=== PATIENT | male | born 1975 | race Caucasian/White ===

== ENCOUNTER → 2018-06-26 | Day surgery (SDC) | payer MEDICARE, MEDICAID ==
[~2018-06-26] VITALS: Ht 162.6 cm; Wt 58.3 kg
[~2018-06-26] MED LIST: HYDR10TA11 PO; LACTATED RINGERS 1,000 ML IV SCH; LEVO100T PO; PLEASE ENTER HEIGHT AND WEIGHT MC SCH
[2018-06-26 10:58] VITALS: BP 108/77
== END | disposition home or self-care (01) ==
LOC: OUT 10:08
DX: Z02.9 Encounter for administrative examinations, unspecified (principal)

== ENCOUNTER 2019-01-26 09:01 | Day surgery (SDC) | payer MEDICARE, MEDICAID ==
[~2019-01-26] VITALS: Ht 162.6 cm; Wt 52.8 kg
[~2019-01-26 09:01] MED LIST changes: +HYDR-3059 PO; -HYDR10TA11 PO; -LACTATED RINGERS 1,000 ML IV SCH; -PLEASE ENTER HEIGHT AND WEIGHT MC SCH
[2019-01-26 09:40] VITALS: BP 117/73
[2019-01-26] MEDS ORDERED: LACTATED RINGERS 1,000 ML IV SCH (09:53)
[2019-01-26] MEDS ORDERED: PROPOFOL 10 MG/ML, 20ML ONE (11:11)
[2019-01-26] MEDS ORDERED: MORPHINE SULFATE 4 MG/ML, 1ML IVPush PRN (12:00)
[2019-01-26] MEDS ORDERED: DIAZEPAM 5 MG/ML, 2ML IVPush PRN (12:00)
[2019-01-26] MEDS ORDERED: PROMETHAZINE 12.5 MG SUPP PR PRN (12:00)
[2019-01-26] MEDS ORDERED: HYDROmorphone 2 MG/ML, 1ML IVPush PRN (12:00)
[2019-01-26] MEDS ORDERED: hydrALAzine 20 MG/ML, 1ML IV PRN (12:00)
[2019-01-26] MEDS ORDERED: LABETALOL 5MG/ML, 20ML IV PRN (12:00)
[2019-01-26] MEDS ORDERED: EPHEDRINE 50 MG/ML, 1ML IVPush PRN (12:00)
[2019-01-26] MEDS ORDERED: MIDAZOLAM 1 MG/ML, 2ML IV PRN (12:00)
[2019-01-26] MEDS ORDERED: HALOPERIDOL 5 MG/ML IV PRN (12:00)
[2019-01-26] MEDS ORDERED: PROMETHAZINE 25 MG/ML, 1ML IV PRN (12:00)
[2019-01-26] MEDS ORDERED: ALBUTEROL SULFATE 2.5 MG/3 ML NPPB PRN (12:00)
[2019-01-26] MEDS ORDERED: MEPERIDINE/PF 25MG/0.5ML IVPush PRN (12:00)
[2019-01-26] MEDS ORDERED: ONDANSETRON ODT 8 MG PO PRN (12:00)
[2019-01-26] MEDS ORDERED: OXYcodone 5 MG/5 ML ORAL.SOL UDC PO PRN (12:00)
[2019-01-26] MEDS ORDERED: ONDANSETRON 2MG/ML, 2ML IV PRN (12:00)
[2019-01-26] MEDS ORDERED: FENTANYL PF 100 MCG/2ML IV PRN (12:00)
== END 2019-01-26 12:53 | disposition home or self-care (01) ==
LOC: OR 09:01
PROVIDERS: ATTEND Internal Medicine
DX: K22.2 Esophageal obstruction (principal); E03.9 Hypothyroidism, unspecified
CPT/HCPCS: 43248; J2704; J7120